=== PATIENT | male | born 1965 | race Caucasian/White ===

== ENCOUNTER 2016-11-10 08:13 | Day surgery (SDC) | payer OTHER, BC ==
[~2016-11-10] VITALS: Ht 182.9 cm
--- NOTE | 2016-11-11 07:43 | OR ---
ADMIT: 11/10/2016 RM/LOC: [facility] MR#: [id number] [address] ROULA SNYDER [address] [place] [address] Operative/Delivery Room Report SEX: M AGE: 51 : 1965 SURGERY DATE: 11/10/2016 SURGEON: Bonny Valera MD SLIP COVER OPERATOR: None. PREOPERATIVE DIAGNOSES: 1. Lumbar spondylosis. 2. Lumbago. POSTOPERATIVE DIAGNOSES: 1. Lumbar spondylosis. 2. Lumbago. PROCEDURE PERFORMED: Right L3, L4, L5, and S1 lumbar medial branch block. INDICATION FOR THE PROCEDURE: The patient is a pleasant gentleman with history of chronic low back pain secondary to above-mentioned diagnosis comes here for planned right-sided lumbar medial branch block. ANESTHESIA: Local without sedation. ESTIMATED BLOOD LOSS: Zero. COMPLICATIONS: None immediately evident. DESCRIPTION OF THE PROCEDURE: After the patient was seen in the preoperative area, vital signs were taken. Prior to the procedure, the risks, benefits, and alternative therapies were discussed at length. The patient's consent was obtained and updated. The patient was taken to the fluoroscopy suite and placed on the fluoroscopy table in a prone position. Pressure points were padded to comfort. Monitors were applied and a timeout performed. The lumbosacral area was prepped and draped sterilely using ChloraPrep. C-arm fluoroscopy was then brought in to identify the junction of the pedicular and transverse process. Then lidocaine 1% was applied; approximately 1 mL was used to anesthetize the skin and underlying subcutaneous tissue at right L3, L4, L5 and S1 levels. At each level, a 3.5 inch 22-gauge spinal needle was used. The needle was then advanced to make contact with the superior ADMIT: 11/10/2016 RM/LOC: [facility] MR#: [id number] [address] ROULA SNYDER [address] [place] [address] Operative/Delivery Room Report SEX: M AGE: 51 : 1965 articular facet at each level, and then needle was placed between the junction of the superior articular facet and the transfer process. Then the patient received 0.5 mL of 0.25% Marcaine with approximately 80 mg of Depo-Medrol at each level. The patient had reproduction of his typical pain at each level. The patient tolerated the procedure well. The patient was brought to the PACU where he recovered nicely without any complication. PLAN: The patient was examined after 20 minutes and had 70% reduction of pain. Range of motion went from 10 degrees of extension to 20 degrees of extension. Discharge instructions were given. Followup as scheduled. The patient was discharged with a trailer driver. Bonny Valera MD/ chelsey JOB #: [id number] CC: Bonny Valera, Attending Physician Juan Carlos Madsen, Family Physician
== END 2016-11-10 09:57 | disposition home or self-care (01) ==
LOC: SSS 08:13
PROC: 3E0T33Z Introduction of Anti-inflammatory into Peripheral Nerves and Plexi, Percutaneous Approach (ICD-10-PCS; principal; 2016-11-10)
PROC: 3E0T3BZ Introduction of Anesthetic Agent into Peripheral Nerves and Plexi, Percutaneous Approach (ICD-10-PCS; principal; 2016-11-10)
PROC: BR16YZZ Fluoroscopy of Lumbar Facet Joint(s) using Other Contrast (ICD-10-PCS; principal; 2016-11-10)
DX: G89.29 Other chronic pain (principal); M47.816 Spondylosis without myelopathy or radiculopathy, lumbar region; M51.37 Other intervertebral disc degeneration, lumbosacral region; M54.30 Sciatica, unspecified side; I10 Essential (primary) hypertension; E11.65 Type 2 diabetes mellitus with hyperglycemia; Z87.891 Personal history of nicotine dependence; Z79.899 Other long term (current) drug therapy

== ENCOUNTER 2016-12-22 09:28 | Day surgery (SDC) | payer OTHER ==
[~2016-12-22] VITALS: Ht 182.9 cm; Wt 142.2 kg
--- NOTE | 2016-12-23 08:12 | OR ---
ADMIT: 12/22/2016 RM/LOC: [facility] MR#: [id number] [address] ROU[address] SNYDER [address] [place] [address] Operative/Delivery Room Report SEX: M AGE: 51 : 1965 SURGERY DATE: 12/22/2016 SURGEON: Bonny Valera MD RN PRIVATE DUTY: None. PREOPERATIVE DIAGNOSES: 1. Lumbar spondylosis. 2. Lumbago. POSTOPERATIVE DIAGNOSES: 1. Lumbar spondylosis. 2. Lumbago. PROCEDURE PERFORMED: Right L3, L4, L5, and S1 lumbar medial branch block. INDICATION FOR THE PROCEDURE: The patient is a pleasant male with history of chronic low back pain secondary to above-mentioned diagnoses comes here for planned right-sided lumbar medial branch block. ANESTHESIA: Local without sedation. ESTIMATED BLOOD LOSS: Zero. COMPLICATIONS: None immediately evident. DESCRIPTION OF THE PROCEDURE: After the patient was seen in the preoperative area, vital signs were taken. Prior to the procedure, the risks, benefits, and alternative therapies were discussed at length. The patient's consent was obtained and updated. The patient was taken to the fluoroscopy suite and placed on the fluoroscopy table in a prone position. Pressure points were padded to comfort. Monitors were applied and a timeout performed. The lumbosacral area was prepped and draped sterilely using ChloraPrep. C-arm fluoroscopy was then brought in to identify the junction of the pedicular and transverse process. Then lidocaine 1% was applied; approximately 1 mL was used to anesthetize the skin and underlying subcutaneous tissue at right L3, L4, L5 and S1 levels. At each level, a 3.5 inch 22-gauge spinal needle was used. The needle was then advanced to make contact with the superior ADMIT: 12/22/2016 RM/LOC: [facility] MR#: [id number] [address] ROULA SNYDER [address] [place] [address] Operative/Delivery Room Report SEX: M AGE: 51 : 1965 articular facet at each level, and then needle was placed between the junction of the superior articular facet and the transfer process. Then the patient received 0.5 mL of 0.25% Marcaine with approximately 80 mg of Depo-Medrol at each level. The patient had reproduction of his typical pain at each level. The patient tolerated the procedure well. The patient was brought to the PACU where he recovered nicely without any complication. PLAN: The patient was examined after 20 minutes and had 20% reduction of pain. Range of motion went from 10 degrees to 20 degrees of extension. Discharge instructions were given. Followup as scheduled. The patient was discharged with a tractor driver. Bonny Valera MD/ chelsey JOB #: [id number] CC: Bonny Valera, Attending Physician Juan Carlos Madsen, Family Physician
== END 2016-12-22 11:36 | disposition home or self-care (01) ==
LOC: SSS 09:28
PROC: 3E0T3BZ Introduction of Anesthetic Agent into Peripheral Nerves and Plexi, Percutaneous Approach (ICD-10-PCS; principal; 2016-12-22)
PROC: 3E0T33Z Introduction of Anti-inflammatory into Peripheral Nerves and Plexi, Percutaneous Approach (ICD-10-PCS; principal; 2016-12-22)
PROC: BR16YZZ Fluoroscopy of Lumbar Facet Joint(s) using Other Contrast (ICD-10-PCS; principal; 2016-12-22)
DX: G89.29 Other chronic pain (principal); M47.26 Other spondylosis with radiculopathy, lumbar region; M51.37 Other intervertebral disc degeneration, lumbosacral region; M54.30 Sciatica, unspecified side; Z88.0 Allergy status to penicillin; Z79.899 Other long term (current) drug therapy; Z87.891 Personal history of nicotine dependence